=== PATIENT | male | born 1945 | race Caucasian/White ===

== ENCOUNTER 2017-10-04 12:19 | Outpatient (CLI) | payer MEDICARE, OTHER ==
[~2017-10-04 12:19] MED LIST: ANAS1TAB10 PO; ASPI81TA52 PO; CARV-50 PO; LEVO75TA PO; LIOT25TA8 PO; MULT-342 PO; TEST100V5 IM
[2017-10-04 13:10] LABS: TOTAL HEMOGLOBIN 17.7 G/dl (14.0-18.0)
[2017-10-04] MEDS ORDERED: albuterol 2.5 MG/3 ML nebule NEB ONE (13:25)
== END 2017-10-04 23:59 | disposition home or self-care (01) ==
LOC: RT 12:19
PROVIDERS: ATTEND Internal Medicine Pulmonary Disease
DX: J44.9 Chronic obstructive pulmonary disease, unspecified (principal); I11.0 Hypertensive heart disease with heart failure; I50.9 Heart failure, unspecified; Z88.0 Allergy status to penicillin; Z88.5 Allergy status to narcotic agent; Z87.891 Personal history of nicotine dependence; Z79.82 Long term (current) use of aspirin; Z72.89 Other problems related to lifestyle
CPT/HCPCS: 85018; 94060; 94727; 94729; 94760